=== PATIENT | male | born 1985 | race African-American/Black ===

== ENCOUNTER 2021-12-30 19:09 | Emergency (ER) | payer OTHER ==
[2021-12-30] MEDS ORDERED: Lidocaine 1% 20 ML MDV ONE (20:19)
[2021-12-30] MEDS ORDERED: Boostrix 0.5 ML (Tdap) VIAL ONE (20:37)
== END 2021-12-30 20:51 ==
LOC: EEVIPCON 19:09 → NAV ERS 19:09
DX: S01.112A Laceration without foreign body of left eyelid and periocular area, initial encounter (principal); S13.9XXA Sprain of joints and ligaments of unspecified parts of neck, initial encounter; X99.8XXA Assault by other sharp object, initial encounter; Z23 Encounter for immunization; I10 Essential (primary) hypertension; Z79.899 Other long term (current) drug therapy
CPT/HCPCS: 12011; 70450; 70486; 72125; 90471; 90715